=== PATIENT | male | born 1990 | race Caucasian/White ===

== ENCOUNTER 2021-05-30 02:17 | Emergency (ER) | payer OTHER ==
[~2021-05-30] VITALS: Ht 172.7 cm; Wt 62.0 kg
[2021-05-30 02:26] VITALS: BP 140/56
[2021-05-30] MEDS ORDERED: LIDOCAINE HCL/PF 1% 10 MG/ML 5ML VIAL INFIL ONE (03:00)
[2021-05-30] MEDS ORDERED: HYDROCODONE/ACETAMINOPHEN 5/325MG TABLET PO ONE (03:00)
[2021-05-30] MEDS ORDERED: TETANUS, DIPHTHERIA, PERTUSSIS VAC/PF 0.5ML (>7YR OLD) IM ONE (03:00)
[2021-05-30] MEDS ORDERED: BACITRACIN ZINC OINT UDPKT TOP ONE (03:00)
[2021-05-30] MEDS ORDERED: AMOX-424 MT (04:18)
[2021-05-30] MEDS ORDERED: IBUP-2029 MT (04:18)
[2021-05-30] MEDS ORDERED: T3 PO (04:18)
== END 2021-05-30 04:28 | disposition home or self-care (01) ==
LOC: ER 02:17
DX: S91.312A Laceration without foreign body, left foot, initial encounter (principal); W52.XXXA Crushed, pushed or stepped on by crowd or human stampede, initial encounter; Y93.89 Activity, other specified; Y92.89 Other specified places as the place of occurrence of the external cause; Y99.8 Other external cause status
CPT/HCPCS: 12002; 73630; 90471; 90715; 99283; J3490; Z7610

== ENCOUNTER 2021-06-01 09:15 | Emergency (ER) | payer OTHER ==
[~2021-06-01] VITALS: Ht 170.2 cm; Wt 59.0 kg
[~2021-06-01 09:15] MED LIST: AMOX-424 MT; IBUP-2029 MT; T3 PO
[2021-06-01 09:32] VITALS: BP 137/99
== END 2021-06-01 13:57 | disposition home or self-care (01) ==
LOC: ER 09:15
DX: Z48.00 Encounter for change or removal of nonsurgical wound dressing (principal)
CPT/HCPCS: 99281

== ENCOUNTER 2021-06-25 11:34 | Emergency (ER) | payer OTHER ==
[~2021-06-25] VITALS: Ht 175.3 cm; Wt 60.0 kg
[2021-06-25] MEDS ORDERED: BACITRACIN ZINC OINT UDPKT TOP STA ×2 (12:13)
[2021-06-25] MEDS ORDERED: BACITRACIN ZINC OINT UDPKT TOP NR (12:15)
[2021-06-25 13:00] VITALS: BP 152/83
== END 2021-06-25 13:01 | disposition home or self-care (01) ==
LOC: ER 11:34
DX: S91.312D Laceration without foreign body, left foot, subsequent encounter (principal); X58.XXXD Exposure to other specified factors, subsequent encounter; Z79.899 Other long term (current) drug therapy
CPT/HCPCS: 99283; Z7610

== ENCOUNTER 2025-04-08 09:02 | Emergency (ER) | payer MEDICAID, OTHER ==
[~2025-04-08] VITALS: Ht 172.7 cm; Wt 62.0 kg
[2025-04-08 09:16] VITALS: O2SAT 99
[2025-04-08] MEDS: HYDROCODONE/ACETAMINOPHEN 5/325MG TABLET PO ONE (10:22)
[2025-04-08] MEDS: BACITRACIN ZINC OINT UDPKT TOP ONE (10:22)
[2025-04-08] MEDS: LIDOCAINE HCL/PF 1% 10 MG/ML 5ML VIAL INFIL ONE (10:23)
[2025-04-08] MEDS ORDERED: SULF1TAB48 MT (11:01)
[2025-04-08] MEDS ORDERED: CEPH500C2 MT (11:01)
[2025-04-08 11:14] VITALS: BP 145/91; PULSE 87; RESP 18; TEMP 36.8; O2SAT 99
== END 2025-04-08 11:17 | disposition home or self-care (01) ==
LOC: ER 09:02
DX: L02.415 Cutaneous abscess of right lower limb (principal); Z79.899 Other long term (current) drug therapy
CPT/HCPCS: 10060; 99283; J2003; Z7610

== ENCOUNTER 2025-07-26 18:49 | Emergency (ER) | payer MEDICAID, OTHER ==
[~2025-07-26] VITALS: Ht 172.7 cm; Wt 62.0 kg
[~2025-07-26 18:49] MED LIST changes: +CEPH500C2 MT; +IBUP-1455 MT; -IBUP-2029 MT; +SULF1TAB48 MT
[2025-07-26 18:54] VITALS: O2SAT 100
[2025-07-26 18:57] VITALS: BP 147/99; PULSE 96; RESP 18; TEMP 36.7; O2SAT 100
[2025-07-26] MEDS: LIDOCAINE HCL 1% 20ML VIAL INL ONE (21:30)
[2025-07-26] MEDS ORDERED: SULF1TAB48 MT (22:25)
[2025-07-26] MEDS ORDERED: CEPH500C2 MT (22:25)
[2025-07-26] MEDS: HYDROCODONE/ACETAMINOPHEN 5/325MG TABLET PO ONE (22:38)
== END 2025-07-26 22:52 | disposition home or self-care (01) ==
LOC: ER 18:49
DX: L02.415 Cutaneous abscess of right lower limb (principal); Z79.899 Other long term (current) drug therapy
CPT/HCPCS: 10060; 99283

== ENCOUNTER 2025-08-01 19:26 | Emergency (ER) | payer MEDICAID, OTHER ==
[~2025-08-01] VITALS: Ht 172.7 cm; Wt 60.0 kg
[2025-08-01 19:37] VITALS: O2SAT 100
[2025-08-01] MEDS: PIPERACILLIN/TAZO 3.375G/50ML 50 ML IV ONE (20:06)
[2025-08-01 20:08] LABS: BASOPHILS % 1.0 % (0.0-2.0); EOSINOPHILS % 1.5 % (0.0-5.0); HEMATOCRIT. 45.6 % (42.0-52.0); HEMOGLOBIN. 15.4 g/dL (14.0-18.0); LYMPHOCYTES % 32.1 % (20.0-50.0); MEAN PLATELET VOLUME 6.6 fl (7.4-10.4); MONOCYTES % 8.9 % (2.0-8.0); NEUTROPHILS % 56.5 % (40.0-76.0); PLATELET 357 x1000/uL (130-400); RED BLOOD CELL COUNT 5.12 mill/uL (4.7-6.1); RED CELL DISTRIBUTION WIDTH 13.6 % (11.6-14.6)
[2025-08-01] MEDS: SODIUM CHLORIDE 0.9% (SEPSIS BOLUS) IV ONE (20:09)
[2025-08-01 20:18] LABS: INR 1.0
[2025-08-01 20:21] LABS: CREATININE 1.0 mg/dL (0.6-1.3); UREA NITROGEN BLOOD 13 mg/dL (9-23)
[2025-08-01 20:23] LABS: ASPARTATE AMINOTRANSFERASE 15 IU/L (<34); BILIRUBIN DIRECT < 0.1 mg/dL (<=3.0); BILIRUBIN TOTAL 0.3 mg/dL (0.1-1.0); PROTEIN TOTAL 7.1 g/dL (6.0-8.3)
[2025-08-01] MEDS: VANCOMYCIN 1G PREMIX 200 ML IV ONE (20:39)
[2025-08-01 21:30] VITALS: BP 144/108; PULSE 92; RESP 20; TEMP 36.9; O2SAT 100
[2025-08-02] MEDS ORDERED: IOHEXOL-300 100 ML BOTTLE ONE (02:04)
== END 2025-08-01 22:13 | disposition short-term general hospital (02) ==
LOC: ER 19:53 → CMPBEDREQ 08-02 07:51
DX: S81.051A Open bite, right knee, initial encounter (principal); L02.415 Cutaneous abscess of right lower limb; R00.0 Tachycardia, unspecified; Z79.899 Other long term (current) drug therapy; Z79.01 Long term (current) use of anticoagulants; W57.XXXA Bitten or stung by nonvenomous insect and other nonvenomous arthropods, initial encounter; Y93.89 Activity, other specified; Y92.89 Other specified places as the place of occurrence of the external cause; Y99.8 Other external cause status
CPT/HCPCS: 99291; 96365; 73700; 71045; 96367; 80076; 80048; 83605; 85025; 85610; 87040; 87070; 87186; 87205; 87077; 36415; 84145; 93005; Q9967; J2543; J3373; J7030